=== PATIENT | female | born 1945 | race Caucasian/White ===

== ENCOUNTER 2017-07-26 14:07 | Emergency (ER) | payer MEDICARE, MEDICAID ==
[~2017-07-26] VITALS: Ht 154.9 cm; Wt 73.0 kg
[2017-07-26 14:35] VITALS: BP 133/64; PULSE 99; RESP 18; TEMP 98.4; O2SAT 99
--- NOTE | 2017-07-26 15:15 | PD ---
HPI Chief Complaint: Respiratory Symptoms Time Seen by Provider: 15:00 Travel History International Travel<30 days: No Contact w/Intl Traveler<30days: No Traveled to known affect area: No History of Present Illness HPI 71-year-old female presents to the emergency room for evaluation of significant nasal congestion that started last night. Patient states she could not sleep because she cannot breathe through her nose. It is draining down the back of her throat. She has associated left ear pain, sinus pressure, rhinorrhea, and sore throat. No cough. No fever or chills. She has not taken anything for her symptoms. She denies any chronic medical conditions or daily medications. [facility] Social History Tobacco Use: No Allergies-Medications (Allergen,Severity, Reaction): Coded Allergies: Penicillins (Verified Allergy, Unknown, 07/26/17) Review of Systems Except as stated in HPI: all other systems reviewed are Neg Physical Exam Narrative GENERAL: Well-nourished, well-developed female no acute distress. Afebrile. Ambulatory. SKIN: Focused skin assessment warm/dry. HEAD: Normocephalic. Mild tenderness to palpation over the frontal, ethmoid, and maxillary sinuses. EYES: No scleral icterus. No injection or drainage. ENT: Mucosa pink and moist. No erythema or exudates. No uvular edema. No uvular , palatal, or tonsillar deviation. Airway patent. Nasal turbinates appear normal without nasal blood, purulent drainage or septal hematoma. EARS: Bilateral pinnae and external canals appear within normal limits. Bilateral tympanic membranes without erythema, dullness or perforation. NECK: Supple, trachea midline. No JVD or lymphadenopathy. CARDIOVASCULAR: Regular rate and rhythm without murmurs, gallops, or rubs. RESPIRATORY: Breath sounds equal bilaterally. No accessory muscle use. Data Data Last Documented VS Vital Signs Date Time Temp Pulse Resp B/P (MAP) Pulse Ox O2 Delivery O2 Flow Rate FiO2 07/26/17 14:35 98.4 99 18 133/64 (87) 99 Orders Orders Influenzae A/B Antigen (07/26/17 15:08) Ed Discharge Order (07/26/17 15:55) MDM Medical Decision Making Medical Screen Exam Complete: Yes Emergency Medical Condition: Yes Medical Record Reviewed: Yes Differential Diagnosis Flu, strep, sinusitis, URI Narrative Course 71-year-old female presents to the emergency room for evaluation of nasal congestion, sinus pressure, and rhinorrhea that started last night. No associated fever, chills, nausea, vomiting, or cough. Patient states overnight her nose clogged so much that she could not breathe. She is afebrile and well- appearing in the emergency room. Vital signs stable. There is mild tenderness to palpation over the sinuses. Rapid influenza is negative. Likely viral URI. Patient was told to take [id number] cough and cold medications for symptoms. Told to follow-up with the primary care physician if symptoms persist for greater than 7 days or return for worsening symptoms. She understands and agrees to plan. Diagnosis Primary Impression: Upper respiratory infection Qualified Codes: J00 - Acute nasopharyngitis [common cold] Referrals: Primary Care Physician Additional Instructions: Rest and drink plenty of fluids. Tylenol for pain. Use [id number] cold medications for relief in symptoms. Also use Angelic pot for nasal congestion. Follow-up with a primary care physician. Return to the emergency room for worsening symptoms. Disposition: 01 DISCHARGE HOME Condition: Stable Catherine Donnelly Jul 26, 2017 15:15
== END 2017-07-26 16:14 | disposition home or self-care (01) ==
LOC: NEPK 14:07
DX: J00 Acute nasopharyngitis [common cold] (principal); H92.02 Otalgia, left ear
CPT/HCPCS: 87804; 99283

== ENCOUNTER 2017-09-30 07:42 | Emergency (ER) | payer MEDICARE, MEDICAID ==
[~2017-09-30] VITALS: Ht 157.5 cm; Wt 80.0 kg
[2017-09-30 07:44] VITALS: BP 181/94; PULSE 93; RESP 24; TEMP 98.4; O2SAT 98
[2017-09-30] MEDS ORDERED: AFRI0.052 EACH NARE (08:14)
--- NOTE | 2017-09-30 08:14 | PD ---
HPI Chief Complaint: Cold / Flu Symptoms Time Seen by Provider: 07:55 Travel History International Travel<30 days: No Contact w/Intl Traveler<30days: No Traveled to known affect area: No History of Present Illness HPI 71-year-old female presents to the emergency department accompanied by her daughter with complaint of stuffy nose since yesterday. She is complaining of shortness of breath. I believe her shortness of breath is related to her trying to breathe through her nose and it is congested. When she tells me she is short of breath she keeps trying to show me by breathing through her nose. She then appears anxious because she cannot breathe through her nose and starts to panic. she denies chest pain, chest tightness, wheezing. Denies fever, vomiting. Reports left ear pain. Denies sore throat. Reports occasional cough. Denies tobacco use. Symptoms are mild to moderate in severity. Seems to be aggravated with trying to breathe through her nose. No known relieving factors. Has not taken any medications or try any treatments to alleviate her symptoms. Primary care provider is Dr. Ngo. Allergies to penicillin. History of hypertension and hypothyroid. PFSH Past Medical History ?: Not Past Surgical History Hysterectomy: Yes (POSS ) Social History Alcohol Use: No Tobacco Use: No Substance Use: No Allergies-Medications (Allergen,Severity, Reaction): Coded Allergies: Penicillins (Verified Allergy, Unknown, 07/26/17) Reported Meds & Prescriptions Reported Meds & Active Scripts Active Afrin Nasal [place] (Oxymetazoline HCl) 0.05% [place] 2-3 [place] EACH NARE Q12H PRN 3 Days Review of Systems Except as stated in HPI: all other systems reviewed are Neg Physical Exam Narrative GENERAL: Well-nourished, well-developed elderly, female patient, in no acute distress; afebrile, nontoxic-appearing SKIN: Warm and dry. No rash. HEAD: Atraumatic. Normocephalic. EYES: Pupils equal and round. No scleral icterus. No injection or drainage. ENT: Mucosa pink and moist. No erythema or exudates. No uvular edema. No uvular , palatal, or tonsillar deviation. Airway patent. Nasal congestion noted. EARS: Bilateral pinnae and external canals appear within normal limits. Bilateral tympanic membranes without erythema, dullness or perforation. NECK: Trachea midline. No lymphadenopathy. CARDIOVASCULAR: Regular rate and rhythm. No murmur appreciated. RESPIRATORY: No accessory muscle use. Clear to auscultation. Breath sounds equal bilaterally. No retractions or tachypnea. GASTROINTESTINAL: Abdomen soft, non-tender, nondistended. Hepatic and splenic margins not palpable. Bowel sounds are active 4 quadrants. MUSCULOSKELETAL: No obvious deformities. No clubbing. No cyanosis. No edema. NEUROLOGICAL: Awake and alert. Oriented 3. No obvious cranial nerve deficits. Motor grossly within normal limits. Normal speech. Moves all extremities. 5/5 strength to all extremities. PSYCHIATRIC: Appropriate mood and affect; insight and judgment normal. Data Data Last Documented VS Vital Signs Date Time Temp Pulse Resp B/P (MAP) Pulse Ox O2 Delivery O2 Flow Rate FiO2 09/30/17 09:18 99 09/30/17 07:44 98.4 93 24 181/94 (123) Orders Orders Chest, Single Ap (09/30/17 08:05) Influenzae A/B Antigen (09/30/17 08:05) Lorazepam (Ativan) (09/30/17 08:15) Ed Discharge Order (09/30/17 08:51) MDM Medical Decision Making Medical Screen Exam Complete: Yes Emergency Medical Condition: Yes Medical Record Reviewed: Yes Differential Diagnosis Viral illness, upper respiratory infection, nasal congestion Narrative Course 71-year-old female physical exam and HPI consistent with nasal congestion. Patient is in no acute distress. Her lung sounds are clear and equal throughout. She is panicking because she cannot breathe through her nose because of nasal congestion. I asked Dr. Ramirez to evaluate the patient for her comfort. 0810: Dr. Ramirez evaluated the patient and agrees with my plan of care. He recommended Afrin nasal spray for home for 3 days. Chest x-ray unremarkable. Influenza negative. Afrin nasal spray prescribed for home. Instructed patient to follow up with primary care provider. Patient verbalizes understanding and agreement with treatment plan. Patient is medically cleared and stable for discharge. Discussed reasons to return to the emergency department. Patient agrees with treatment plan. The patients vital signs are stable and the patient is stable for outpatient follow-up and treatment. Patient discharged home, stable and in no acute distress. Diagnosis Primary Impression: Viral illness Referrals: [facility] Primary Care Physician Patient Instructions: Cold Symptoms (ED), General Instructions, Safe Use of Cough and Cold Medicines (ED) Additional Instructions: Ibuprofen or Tylenol as directed and as needed to reduce fever/pain Bqno-uxt-fylpspi cold/flu medications as directed and as needed for symptom management Get plenty of sleep/rest Drink plenty of fluids to prevent dehydration; such as Gatorade, Powerade, Pedialyte Mcduffie diet to encourage nutrition such as crackers, fruit, applesauce, toast, soup etc. Use an air humidifier/turn off ceiling fans Follow-up with your primary care provider within 1 day Return immediately to the emergency department with worsening of symptoms Med/Other Pt SpecificInfo: Prescription(s) given Scripts Oxymetazoline Nasal (Afrin Nasal [place]) 0.05% [place] 2-3 SPRAY EACH NARE Q12H Y for NASAL CONGESTION for 3 Days, #1 BOTTLE 0 Refills Prov: Inocencia Graves 09/30/17 Disposition: 01 DISCHARGE HOME Condition: Stable Inocencia Graves September 30, 2017 08:14
[2017-09-30] MEDS ORDERED: LORazepam 1 MG TAB PO ONE (08:15)
--- NOTE | 2017-09-30 08:16 | PD ---
Data Data Last Documented VS Vital Signs Date Time Temp Pulse Resp B/P (MAP) Pulse Ox O2 Delivery O2 Flow Rate FiO2 09/30/17 09:18 99 09/30/17 07:44 98.4 93 24 181/94 (123) Orders Orders Chest, Single Ap (09/30/17 08:05) Influenzae A/B Antigen (09/30/17 08:05) Lorazepam (Ativan) (09/30/17 08:15) Ed Discharge Order (09/30/17 08:51) MDM Supervised Visit with PEGGY: Yes Narrative Course I, Dr. Ramirez, have reviewed the advance practice practitioner's documentation and am in agreement, met with the patient face to face, made the diagnosis, and the medical decision making was done by me. *My assessment and Findings: Patient seen and examined by me in addition to Inocencia SOLIS. 71-year-old female presents emergency department for complaints of shortness of breath from upper respiratory and sinus stuffiness as well as a left earache. Patient is a reassuring physical exam by me, heart rate in the upper limit of normal in triage which she has been in the 80s on monitoring in the room, saturating well. No history of cancer no history of long periods of stasis and no history of blood clots. When she breathes through her mouth her shortness of breath resolved. When distracted back to breathe through her mouth her respiratory rate and heart rate normalized GENERAL: Well-nourished obese, well-developed patient. SKIN: Focused skin assessment warm/dry. HEAD: Normocephalic. EYES: No scleral icterus. No injection or drainage. NECK: Supple, trachea midline. No JVD or lymphadenopathy. CARDIOVASCULAR: Regular rate and rhythm without murmurs, gallops, or rubs. RESPIRATORY: Breath sounds equal bilaterally. No accessory muscle use. GASTROINTESTINAL: Abdomen soft, non-tender, nondistended. MUSCULOSKELETAL: No cyanosis, or edema. Homans sign negative bilaterally. BACK: Nontender without obvious deformity. No CVA tenderness. I think clinically the PE is a very low likelihood and the risks of radiation contrast exposure outweigh the benefits. Think her symptoms would be explained by nasal pack is blockage, consider upper respiratory infection likely viral. Empiric Afrin I think would be a good choice for her and follow-up with her primary care physician. Scripts Oxymetazoline Nasal (Afrin Nasal [place]) 0.05% [place] 2-3 SPRAY EACH NARE Q12H Y for NASAL CONGESTION for 3 Days, #1 BOTTLE 0 Refills Prov: Inocencia Graves 09/30/17 Isaac Ramirez MD September 30, 2017 08:16
--- NOTE | 2017-09-30 08:26 | RADRPT ---
EXAM DATE/TIME: 09/30/2017 08:14 [place] COMPARISON: No previous studies available for comparison. INDICATIONS : Shortness of breath. Congestion. MEDICAL HISTORY : Hypertension. SURGICAL HISTORY : None. ENCOUNTER: Initial ACUITY: 2 days PAIN SCORE: 0/10 LOCATION: Bilateral chest FINDINGS: A single view of the chest demonstrates the lungs to be symmetrically aerated without evidence of mas s, infiltrate or effusion. The cardiomediastinal contours are unremarkable. Osseous structures are intact. CONCLUSION: The lungs are clear. Arvin Tidwell MD on September 30, 2017 at 8:24 Board Certified Radiologist. This report was verified electronically.
== END 2017-09-30 09:18 | disposition home or self-care (01) ==
LOC: NEPD 07:42
DX: B34.9 Viral infection, unspecified (principal); R05 Cough; I10 Essential (primary) hypertension; E03.9 Hypothyroidism, unspecified; R09.81 Nasal congestion; H92.02 Otalgia, left ear
CPT/HCPCS: 71045; 87804; 99284

== ENCOUNTER 2017-11-04 08:53 | Inpatient (IN) | payer MEDICARE, MEDICAID ==
[~2017-11-04] VITALS: Ht 154.9 cm; Wt 76.8 kg
[~2017-11-04 08:53] MED LIST: AFRI0.052 EACH NARE
[2017-11-04 09:16] VITALS: BP 154/71; PULSE 77; RESP 16; TEMP 98.6; O2SAT 95
[2017-11-04 09:24] VITALS: RESP 18; O2SAT 96
[2017-11-04 09:27] VITALS: BP 136/84; PULSE 78; RESP 18; O2SAT 96
[2017-11-04] MEDS ORDERED: SODIUM CHLORIDE 0.9% FLUSH 10 ML FLUSH IVF PRN (09:30)
--- NOTE | 2017-11-04 09:51 | RADRPT ---
EXAM DATE: 11/04/2017 9:45 AM EDT AGE/SEX: 72 years / Female INDICATIONS: Chest pain. CLINICAL DATA: This is the patient's initial encounter. Patient reports that signs and symptoms have been present for 1 day and indicates a pain score of 3/10. MEDICAL/SURGICAL HISTORY: None. None. COMPARISON: [facility] [place]ST SINGLE AP, 09/30/2017. . FINDINGS: A single AP view of the chest demonstrates mild cardiomegaly with bibasilar densities The cardiomedia stinal contours are unremarkable. No pleural effusions. Osseous structures are intact. CONCLUSION: Cardiomegaly with bibasilar atelectasis. Electronically signed by: Cesar Banerjee MD 11/04/2017 9:49 AM EDT
[2017-11-04 10:01] LABS: AUTOMATED NEUTROPHIL # 6.9 TH/MM3 (1.8-7.7); BASOPHIL # 0.1 TH/MM3 (0-0.2); BASOPHIL % 0.6 % (0.0-2.0); EOSINOPHIL # 0.4 TH/MM3 (0-0.4); EOSINOPHIL % 3.9 % (0.0-4.0); HEMATOCRIT 39.2 % (35.0-46.0); HEMOGLOBIN 13.1 GM/DL (11.6-15.3); LYMPH % 22.2 % (9.0-44.0); LYMPHOCYTE # 2.3 TH/MM3 (1.0-4.8); MEAN CORPUSCULAR HEMOGLOBIN 30.1 PG (27.0-34.0); MEAN CORPUSCULAR HGB CONC 33.4 % (32.0-36.0); MEAN PLATELET VOLUME 7.2 FL (7.0-11.0); MONO % 7.6 % (0.0-8.0); MONOCYTE # 0.8 TH/MM3 (0-0.9); NEUT % 65.7 % (16.0-70.0); PLATELET COUNT 319 TH/MM3 (150-450); RED BLOOD COUNT 4.36 MIL/MM3 (4.00-5.30); RED CELL DISTRIBUTION WIDTH 14.5 % (11.6-17.2); WHITE BLOOD COUNT 10.5 TH/MM3 (4.0-11.0)
[2017-11-04 10:16] LABS: PROTHROMBIN TIME - PATIENT 10.2 SEC (9.8-11.6)
--- NOTE | 2017-11-04 11:12 | PD ---
HPI Chief Complaint: Chest Pain Time Seen by Provider: 09:20 Travel History International Travel<30 days: No Contact w/Intl Traveler<30days: No Traveled to known affect area: No History of Present Illness HPI Patient is 72 year old female presents to the ER with epigastric and sternal CP radiating to right shoulder and down right arm. No associated n.v sob or dizziness. Has had stress test in distant past. History of HTN, non-smoker. Patient also states the pain radiates to her right groin where there is a rash. Symptoms moderate, location, radiation and context as above. PFSH Past Surgical History Hysterectomy: Yes (POSS ) Social History Alcohol Use: No Tobacco Use: No Substance Use: No Allergies-Medications (Allergen,Severity, Reaction): Coded Allergies: Penicillins (Verified Allergy, Unknown, 07/26/17) Reported Meds & Prescriptions Reported Meds & Active Scripts Active Nystatin Topical (Nystatin) 100,000 unit/gm Cream 1 Applic TOPICAL Q6HR Afrin Nasal [place] (Oxymetazoline HCl) 0.05% [place] 2-3 [place] EACH NARE Q12H PRN 3 Days Review of Systems Except as stated in HPI: all other systems reviewed are Neg Physical Exam Narrative GENERAL: WD/WN in moderate discomfort. SKIN: Warm and dry. Plaqued rash to left inguinal fold area consistent with candidiasis. HEAD: Atraumatic. Normocephalic. EYES: Pupils equal and round. No scleral icterus. No injection or drainage. ENT: No nasal bleeding or discharge. Mucous membranes pink and moist. NECK: Trachea midline. No JVD. CARDIOVASCULAR: Regular rate and rhythm. 2+ bialteral equal pulses in all four extremities. RESPIRATORY: No accessory muscle use. Clear to auscultation. Breath sounds equal bilaterally. GASTROINTESTINAL: Abdomen soft, non-tender, nondistended. Hepatic and splenic margins not palpable. MUSCULOSKELETAL: Extremities without clubbing, cyanosis, or edema. No obvious deformities. Full NT ROm of both shoulders, no bony tenderness. NEUROLOGICAL: Awake and alert. No obvious cranial nerve deficits. Motor grossly within normal limits. Five out of 5 muscle strength in the arms and legs. Normal speech. PSYCHIATRIC: Appropriate mood and affect; insight and judgment normal. Data Data Last Documented VS Vital Signs Date Time Temp Pulse Resp B/P (MAP) Pulse Ox O2 Delivery O2 Flow Rate FiO2 11/04/17 13:52 83 18 134/63 (86) 97 Room Air 11/04/17 09:16 98.6 Orders Orders Electrocardiogram (11/04/17 09:20) Ckmb (Isoenzyme) Profile (11/04/17 09:20) Complete Blood Count With Diff (11/04/17 09:20) Comprehensive Metabolic Panel (11/04/17 09:20) Magnesium (Mg) (11/04/17 09:20) Prothrombin Time / Inr (Pt) (11/04/17 09:20) Act Partial Throm Time (Ptt) (11/04/17 09:20) Troponin I (11/04/17 09:20) Chest, Single Ap (11/04/17 09:20) Ecg Monitoring (11/04/17 09:20) Iv Access Insert/Monitor (11/04/17 09:20) Oximetry (11/04/17 09:20) Oxygen Administration (11/04/17 09:20) Sodium Chloride 0.9% Flush (Ns Flush) (11/04/17 09:30) Aspirin Chew (Aspirin Chew) (11/04/17 13:30) Morphine Inj (Morphine Inj) (11/04/17 14:15) Electrocardiogram (11/04/17 ) Nitroglycerin Sl (Nitrostat Sl) (11/04/17 14:15) Admit Order (Ed Use Only) (11/04/17 ) Labs Laboratory Tests Test 11/04/17 09:34 11/04/17 11:43 White Blood Count 10.5 TH/MM3 Red Blood Count 4.36 MIL/MM3 Hemoglobin 13.1 GM/DL Hematocrit 39.2 % Mean Corpuscular Volume 90.0 FL Mean Corpuscular Hemoglobin 30.1 PG Mean Corpuscular Hemoglobin Concent 33.4 % Red Cell Distribution Width 14.5 % Platelet Count 319 TH/MM3 Mean Platelet Volume 7.2 FL Neutrophils (%) (Auto) 65.7 % Lymphocytes (%) (Auto) 22.2 % Monocytes (%) (Auto) 7.6 % Eosinophils (%) (Auto) 3.9 % Basophils (%) (Auto) 0.6 % Neutrophils # (Auto) 6.9 TH/MM3 Lymphocytes # (Auto) 2.3 TH/MM3 Monocytes # (Auto) 0.8 TH/MM3 Eosinophils # (Auto) 0.4 TH/MM3 Basophils # (Auto) 0.1 TH/MM3 CBC Comment DIFF FINAL Differential Comment Prothrombin Time 10.2 SEC Prothromb Time International Ratio 1.0 RATIO Activated Partial Thromboplast Time 25.7 SEC Blood Urea Nitrogen 9 MG/DL Creatinine 0.81 MG/DL Random Glucose 87 MG/DL Total Protein 8.2 GM/DL Albumin 3.7 GM/DL Calcium Level 8.8 MG/DL Magnesium Level 2.3 MG/DL Alkaline Phosphatase 102 U/L Aspartate Amino Transf (AST/SGOT) 16 U/L Alanine Aminotransferase (ALT/SGPT) 16 U/L Total Bilirubin 0.2 MG/DL Sodium Level 141 MEQ/L Potassium Level 4.4 MEQ/L Chloride Level 106 MEQ/L Carbon Dioxide Level 28.8 MEQ/L Anion Gap 6 MEQ/L Estimat Glomerular Filtration Rate 70 ML/MIN Total Creatine Kinase 90 U/L Troponin I LESS THAN 0.02 NG/ML MDM Medical Decision Making Medical Screen Exam Complete: Yes Emergency Medical Condition: Yes Differential Diagnosis ACS, AMI, Tinea cruris, pneumonia, GERD. Narrative Course Patient roomed in ED, ekg non-ischemic, troponin negative. Last 24 hours Impressions Chest X-Ray 11/04/17 0920 Signed Impressions: CONCLUSION: Cardiomegaly with bibasilar atelectasis. Tinea cruris could be treated outpatient with nystatin. I don't think this is contributing to her chest pain. Morphine, nitro aspirin, feeling better. discussed [facility] obs and she is agreeable. D/W Dr. Radford. Diagnosis Primary Impression: Chest pain Additional Impression: Tinea cruris Admitting Information Admitting Physician Requests: Observation Med/Other Pt SpecificInfo: Prescription(s) given Scripts Nystatin Topical (Nystatin Topical) 100,000 unit/gm Cream 1 APPLIC TOPICAL Q6HR for Infection, #15 GM 0 Refills Prov: Isaac Ramirez MD 11/04/17 Disposition: 01 DISCHARGE HOME Condition: Stable Isaac Ramirez MD Nov 04, 2017 11:12
[2017-11-04 12:26] LABS: ALKALINE PHOSPHATASE 102 U/L (45-117); TOTAL BILIRUBIN ADULT 0.2 MG/DL (0.2-1.0); TOTAL PROTEIN 8.2 GM/DL (6.4-8.2); TROPONIN I LESS THAN 0.02 NG/ML (0.02-0.05)
[2017-11-04 12:47] LABS: ALBUMIN 3.7 GM/DL (3.4-5.0); ALT (GPT) 16 U/L (10-53); AST (GOT) 16 U/L (15-37); BICARBONATE 28.8 MEQ/L (21.0-32.0); BLOOD UREA NITROGEN 9 MG/DL (7-18); CALCIUM 8.8 MG/DL (8.5-10.1); CHLORIDE 106 MEQ/L (98-107); CREATININE 0.81 MG/DL (0.50-1.00); GLOMERULAR FILTRATION RATE 70 ML/MIN (>89); GLUCOSE,RANDOM 87 MG/DL (74-106); MAGNESIUM 2.3 MG/DL (1.5-2.5); SODIUM (NA) 141 MEQ/L (136-145)
[2017-11-04] MEDS ORDERED: ASPIRIN 81 MG CHEW TAB CHEW ONE (13:30)
[2017-11-04 13:52] VITALS: BP 134/63; PULSE 83; RESP 18; O2SAT 97
[2017-11-04] MEDS ORDERED: NITROGLYCERIN 0.4 MG SL 25 TABS/BTL SL ONE (14:15)
[2017-11-04] MEDS ORDERED: MORPHINE SULFATE 4 MG/ML INJ IV PUSH ONE (14:15)
--- NOTE | 2017-11-04 15:11 | EKG ---
Date Performed: 11/04/2017 Time Performed: 09:27:53 PTAGE: 72 years EKG: Sinus rhythm WITH SINUS ARRHYTHMIA NORMAL ECG INTERPRETATION BASED ON A DEFAULT AGE OF 41 YEARS NO PREVIOUS TRACING DOCTOR: Marlo Chávez Interpretating Date/Time 11/04/2017 15:08:35
[2017-11-04] MEDS ORDERED: NYST15T TOPICAL (15:16)
--- NOTE | 2017-11-04 16:32 | PD.CARD.PN ---
Subjective Subjective Remarks Patient was seen in concert with the nurse practitioner and examined personally. Documentation is reviewed as well as laboratory and radiographic findings. I am in agreement with documentation as stated. Patient has a high probability of having shingles involving the base of her neck and right shoulder area but vesicular rash not fully developed yet. The area is red and exquisitely tender however She will be ruled out for ACS using standard chest pain protocol however does anticipate this will be negative and she will require treatment for shingles. Objective Medications Current Medications Medications (Trade) Dose Ordered Sig/Ty Route Start Time Stop Time Status Last Admin (NS Flush) 2 ml UNSCH PRN IVF 11/04/17 09:30 (Mycostatin Cream) 1 applic Q6HR TOPICAL 11/04/17 18:00 Vital Signs / I&O Vital Signs Date Time Temp Pulse Resp B/P (MAP) Pulse Ox O2 Delivery O2 Flow Rate FiO2 11/04/17 13:52 83 18 134/63 (86) 97 Room Air 11/04/17 09:27 78 18 136/84 (101) 96 Room Air 11/04/17 09:24 18 96 Room Air 11/04/17 09:24 96 Room Air 11/04/17 09:16 98.6 77 16 154/71 (98) 95 Physical Exam Red slightly vesicular area at the nap of her neck with exquisite tenderness and burning extending out over the right shoulder deltoid and anterior chest Laboratory Laboratory Tests Test 11/04/17 09:34 11/04/17 11:43 White Blood Count 10.5 TH/MM3 Red Blood Count 4.36 MIL/MM3 Hemoglobin 13.1 GM/DL Hematocrit 39.2 % Mean Corpuscular Volume 90.0 FL Mean Corpuscular Hemoglobin 30.1 PG Mean Corpuscular Hemoglobin Concent 33.4 % Red Cell Distribution Width 14.5 % Platelet Count 319 TH/MM3 Mean Platelet Volume 7.2 FL Neutrophils (%) (Auto) 65.7 % Lymphocytes (%) (Auto) 22.2 % Monocytes (%) (Auto) 7.6 % Eosinophils (%) (Auto) 3.9 % Basophils (%) (Auto) 0.6 % Neutrophils # (Auto) 6.9 TH/MM3 Lymphocytes # (Auto) 2.3 TH/MM3 Monocytes # (Auto) 0.8 TH/MM3 Eosinophils # (Auto) 0.4 TH/MM3 Basophils # (Auto) 0.1 TH/MM3 CBC Comment DIFF FINAL Differential Comment Prothrombin Time 10.2 SEC Prothromb Time International Ratio 1.0 RATIO Activated Partial Thromboplast Time 25.7 SEC Blood Urea Nitrogen 9 MG/DL Creatinine 0.81 MG/DL Random Glucose 87 MG/DL Total Protein 8.2 GM/DL Albumin 3.7 GM/DL Calcium Level 8.8 MG/DL Magnesium Level 2.3 MG/DL Alkaline Phosphatase 102 U/L Aspartate Amino Transf (AST/SGOT) 16 U/L Alanine Aminotransferase (ALT/SGPT) 16 U/L Total Bilirubin 0.2 MG/DL Sodium Level 141 MEQ/L Potassium Level 4.4 MEQ/L Chloride Level 106 MEQ/L Carbon Dioxide Level 28.8 MEQ/L Anion Gap 6 MEQ/L Estimat Glomerular Filtration Rate 70 ML/MIN Total Creatine Kinase 90 U/L Troponin I LESS THAN 0.02 NG/ML Imaging Last 24 hours Impressions Chest X-Ray 11/04/17 0920 Signed Impressions: CONCLUSION: Cardiomegaly with bibasilar atelectasis. Assessment and Plan Assessment and Plan Discussed care with nurse practitioner she will be ruled out for ACS with standard protocol but also be initiated on treatment for probable shingles Kush Radford MD Nov 04, 2017 16:32
[2017-11-04] MEDS ORDERED: NITROGLYCERIN 0.4 MG SL 25 TABS/BTL SL PRN (16:45)
[2017-11-04 16:58] VITALS: BP 116/55; PULSE 62; RESP 20; TEMP 97.2; O2SAT 95
--- NOTE | 2017-11-04 17:58 | HHI.HP ---
HPI Primary Care Physician Austyn Ngo MD (Paul) Chief Complaint headache, neck pain, right shoulder pain History of Present Illness 72 y.o. female presents to the ER for pain starting last evening that she states began in the occipital head radiating into the right posterior neck and shoulder then into the anterior shoulder region. She points to these areas as discussing it. She denies any associated N/V or diaphoresis. Denies any dyspnea, she has had 3 weeks of nasal congestion/drainage for which she has used OTC generic Afrin spray. She states she was told years back that she had a "heart attack" when she lived in the [place] area when she had reported to the ER with an episode of chest pain. She does not recall; however, ever having to have a cardiac catheterization at the time. She endorses she was placed on medicine for it. The pain was constant throughout the night without any relieving factors thus causing her to present to the ER. No precipitating factors other than she states her neck hurt with some movements. She denies any falls or neck/head injuries. States she does have arthritis. She did experience "relief of her headache" with a dose of Morphine in the ER. Review of Systems Consitutional: DENIES: Fatigue, Fever, Chills, Weight gain, Weight loss Eyes: DENIES: Amaurosis Fug[place], Change in vision HEENT: DENIES: Lightheadedness, Change in hearing Respiratory: DENIES: See HPI, Cough, Snoring, Shortness of breath, Wheezing, Sputum production Cardiovascular: COMPLAINS OF: See HPI Gastrointestinal: DENIES: Nausea, Vomiting, Change in bowel habits, Reflux, Bloody stools, Melena Genitourinary: DENIES: Urinary incontinence, Difficulty voiding Integumentary: COMPLAINS OF: Rash (itchy rash left groin area unrelated) Neurologic: DENIES: Tingling or numbness, Memory problems, Poor Balance, Stroke symptoms Musculoskeletal: COMPLAINS OF: Joint pain (hx of in hands) Psychiatric: DENIES: Anxiety, Depression, Sleep disturbances Hematologic: DENIES: Bruising tendencies, Bleeding tendencies Endocrine: COMPLAINS OF: Thyroid disease itchy rash left groin unrelated Past Family Social History Allergies: Coded Allergies: Penicillins (Verified Allergy, Unknown, 07/26/17) Past Medical History Hx of HTN, Hypothyroidism. Denies Diabetes. Unsure of cholesterol status Past Surgical History Hysterectomy Reported Medications Levothyroxine 100 mcg PO daily Lisinopril 20 mg PO daily Reported Meds & Active Scripts Active Nystatin Topical (Nystatin) 100,000 unit/gm Cream 1 Applic TOPICAL Q6HR Afrin Nasal [place] (Oxymetazoline HCl) 0.05% [place] 2-3 [place] EACH NARE Q12H PRN 3 Days Active Ordered Medications Current Medications Medications (Trade) Dose Ordered Sig/Ty Route Start Time Stop Time Status Last Admin (NS Flush) 2 ml UNSCH PRN IVF 11/04/17 09:30 (Mycostatin Cream) 1 applic Q6HR TOPICAL 11/04/17 18:00 (NS Flush) 2 ml BID IV FLUSH 11/04/17 21:00 (Tylenol) 500 mg Q4H PRN PO 11/04/17 16:45 (Nitrostat Sl) 0.4 mg Q5M PRN SL 11/04/17 16:45 (Aspirin) 325 mg DAILY PO 11/05/17 09:00 (Prinivil) 20 mg DAILY PO 11/05/17 09:00 (Synthroid) 100 mcg DAILY@0600 PO 11/05/17 08:00 (Valtrex) 1,000 mg Q8HR PO 11/04/17 22:00 Family History Father , hx of Diabetes Mom , hx of cancer Sister , hx of CHF Sister living, brain tumor (? cancer) Social History Lives with daughter locally Lifetime nonsmoker Denies illicit drug use Denies ETOH use Physical Exam Vital Signs Vital Signs Date Time Temp Pulse Resp B/P (MAP) Pulse Ox O2 Delivery O2 Flow Rate FiO2 11/04/17 16:58 97.2 62 20 116/55 (75) 95 11/04/17 13:52 83 18 134/63 (86) 97 Room Air 11/04/17 09:27 78 18 136/84 (101) 96 Room Air 11/04/17 09:24 18 96 Room Air 11/04/17 09:24 96 Room Air 11/04/17 09:16 98.6 77 16 154/71 (98) 95 Physical Exam GENERAL: very pleasant female, [place] is primary language but speaks Singaporean well. Offered dining room hostess services but patient declined stating she understands well. SKIN: Warm and dry. Erythematous macular rash left groin with some satellite lesions. No drainage. Small circular patch of erythema to mid cervical area just below hairline and slightly upward into hairline. A couple of erythematous papules within this area, no vesicles. Patient was questioned regarding a birthmark or past rash in this area and she denies both. HEAD: Atraumatic. Normocephalic. EYES: Pupils equal and round. No scleral icterus. No injection or drainage. ENT: No nasal bleeding, mild clear nasal discharge and mild nasal congestion. Mucous membranes pink and moist. NECK: Trachea midline. No JVD. No carotid bruits. CARDIOVASCULAR: Regular rate and rhythm. S1 and S2 in RRR. No S3, S4, rub or gallop. No appreciable murmur. RESPIRATORY: No accessory muscle use. Clear to auscultation. Breath sounds equal bilaterally. GASTROINTESTINAL: Abdomen soft, non-tender, nondistended. Hepatic and splenic margins not palpable. MUSCULOSKELETAL: Extremities without clubbing, cyanosis, or edema. No obvious deformities, some arthritic changes fingers bilaterally. Exquisite tenderness to occiput, musculoskeletal area right trapezius and anterior shoulder/chest wall below right scapula. NEUROLOGICAL: Awake and alert. No obvious cranial nerve deficits. Motor grossly within normal limits. Five out of 5 muscle strength in the arms and legs. Normal speech. PSYCHIATRIC: Appropriate mood and affect; insight and judgment normal. EXTREMITIES:moves all extremities. some tenderness cervical spine with rotation of head laterally. Laboratory Laboratory Tests Test 11/04/17 09:34 11/04/17 11:43 White Blood Count 10.5 Red Blood Count 4.36 Hemoglobin 13.1 Hematocrit 39.2 Mean Corpuscular Volume 90.0 Mean Corpuscular Hemoglobin 30.1 Mean Corpuscular Hemoglobin Concent 33.4 Red Cell Distribution Width 14.5 Platelet Count 319 Mean Platelet Volume 7.2 Neutrophils (%) (Auto) 65.7 Lymphocytes (%) (Auto) 22.2 Monocytes (%) (Auto) 7.6 Eosinophils (%) (Auto) 3.9 Basophils (%) (Auto) 0.6 Neutrophils # (Auto) 6.9 Lymphocytes # (Auto) 2.3 Monocytes # (Auto) 0.8 Eosinophils # (Auto) 0.4 Basophils # (Auto) 0.1 CBC Comment DIFF FINAL Differential Comment Prothrombin Time 10.2 Prothromb Time International Ratio 1.0 Activated Partial Thromboplast Time 25.7 Blood Urea Nitrogen 9 Creatinine 0.81 Random Glucose 87 Total Protein 8.2 Albumin 3.7 Calcium Level 8.8 Magnesium Level 2.3 Alkaline Phosphatase 102 Aspartate Amino Transf (AST/SGOT) 16 Alanine Aminotransferase (ALT/SGPT) 16 Total Bilirubin 0.2 Sodium Level 141 Potassium Level 4.4 Chloride Level 106 Carbon Dioxide Level 28.8 Anion Gap 6 Estimat Glomerular Filtration Rate 70 Total Creatine Kinase 90 Troponin I LESS THAN 0.02 Result Diagram: 11/04/17 0934 11/04/17 1143 Imaging Last 24 hours Impressions Chest X-Ray 11/04/17 0920 Signed Impressions: CONCLUSION: Cardiomegaly with bibasilar atelectasis. Course EKG x 1 Sinus rhythm with sinus Arrhythmia Caprini VTE Risk Assessment Caprini VTE Risk Assessment: No/Low Risk (score <= 1) Caprini Risk Assessment Model Point Value = 1 Point Value = 2 Point Value = 3 Point Value = 5 Age 41-60 Minor surgery BMI > 25 kg/m2 Swollen legs Varicose veins or History of unexplained or recurrent spontaneous Oral contraceptives or hormone replacement Sepsis (< 1 month) Serious lung disease, including pneumonia (< 1 month) Abnormal pulmonary function Acute myocardial infarction Congestive heart failure (< 1 month) History of inflammatory bowel disease Medical patient at bed rest Age 61-74 Arthroscopic surgery Major open surgery (> 45 min) Laparoscopic surgery (> 45 min) Malignancy Confined to bed (> 72 hours) Immobilizing plaster cast Central venous access Age >= 75 History of VTE Family history of VTE Factor V Leiden Prothrombin [id number] Lupus anticoagulant Anticardiolipin antibodies Elevated serum homocysteine Heparin-induced thrombocytopenia Other congenital or acquired thrombophilia Stroke (< 1 month) Elective arthroplasty Hip, pelvis, or leg fracture Acute spinal cord injury (< 1 month) Prophylaxis Regimen Total Risk Factor Score Risk Level Prophylaxis Regimen 0-1 Low Early ambulation 2 Moderate Order ONE of the following: *Sequential Compression Device (SCD) *Heparin 5000 units SQ BID 3-4 Higher Order ONE of the following medications: *Heparin 5000 units SQ TID *Enoxaparin/Lovenox 40 mg SQ daily (WT < 150 kg, CrCl > 30 mL/min) *Enoxaparin/Lovenox 30 mg SQ daily (WT < 150 kg, CrCl > 10-29 mL/min) *Enoxaparin/Lovenox 30 mg SQ BID (WT < 150 kg, CrCl > 30 mL/min) AND/OR *Sequential Compression Device (SCD) 5 or more Highest Order ONE of the following medications: *Heparin 5000 units SQ TID (Preferred with Epidurals) *Enoxaparin/Lovenox 40 mg SQ daily (WT < 150 kg, CrCl > 30 mL/min) *Enoxaparin/Lovenox 30 mg SQ daily (WT < 150 kg, CrCl > 10-29 mL/min) *Enoxaparin/Lovenox 30 mg SQ BID (WT < 150 kg, CrCl > 30 mL/min) AND *Sequential Compression Device (SCD) Assessment and Plan Problem List: (1) Chest pain ICD Codes: R07.9 - Chest pain, unspecified Status: Acute (2) Tinea cruris ICD Codes: B35.6 - Tinea cruris Status: Acute Assessment and Plan #1. Chest pain: atypical in nature and possibly with musculoskeletal etiology but given risk factors and stated past hx of DC will place in 23 hr observation in [facility] with telemetry and rule out with serial enzymes and EKGs. Patient seen by Dr. Radford as well and if patient rules out will reassess in AM for need for possible stress test. #2 Skin Candidiasis right groin: antifungal cream ordered per ER MD #3 Neck/shoulder pain: small circular rash mid cervical area which may represent early shingles rash, her described pain per HPI may represent radicular pain secondary to developing shingles or may be musculoskeletal related. Will start on Valtrex, pain medication PRN and re-exam area in AM. Code Status Full code Discussed Condition With Dr. Radford who examined the patient as well. Bobbi Martin Nov 04, 2017 17:58
[2017-11-04 18:09] LABS: TROPONIN I LESS THAN 0.02 NG/ML (0.02-0.05)
[2017-11-04] MEDS: NYSTATIN 100,000 UNIT/GM CREAM 15 GM TOPICAL SCH (18:15)
[2017-11-04 20:02] VITALS: BP 119/56; PULSE 77; RESP 16; TEMP 99.6; O2SAT 96
[2017-11-04] MEDS: valACYclovir HCL 500 MG TAB PO SCH (20:24)
[2017-11-04] MEDS: MORPHINE SULFATE 4 MG/ML INJ IV PRN (20:25)
[2017-11-04] MEDS: SODIUM CHLORIDE 0.9% FLUSH 10 ML FLUSH IV FLUSH SCH (20:27)
[2017-11-04 21:09] LABS: TROPONIN I LESS THAN 0.02 NG/ML (0.02-0.05)
[2017-11-04] MEDS: ACETAMINOPHEN/HYDROcodone 325 MG/5 MG TAB PO PRN (23:27)
[2017-11-04] MEDS: LORazepam 0.5 MG TAB PO PRN (23:28)
[2017-11-05] VITALS (28 sets, daily range): BP systolic 92–130; BP diastolic 50–72; PULSE 61–94; RESP 18–20; TEMP 97.6–98.6; O2SAT 96–98
[2017-11-05] MEDS: MORPHINE SULFATE 4 MG/ML INJ IV PRN ×3 (03:44→20:42)
[2017-11-05] MEDS: valACYclovir HCL 500 MG TAB PO SCH (06:00)
[2017-11-05] MEDS: NYSTATIN 100,000 UNIT/GM CREAM 15 GM TOPICAL SCH ×5 (06:00→23:00)
[2017-11-05] MEDS: ASPIRIN 325 MG TAB PO SCH (08:09)
[2017-11-05] MEDS: LEVOTHYROXINE SODIUM 100 MCG TAB PO SCH (08:10)
[2017-11-05] MEDS: SODIUM CHLORIDE 0.9% FLUSH 10 ML FLUSH IV FLUSH SCH ×2 (08:10→20:39)
--- NOTE | 2017-11-05 08:55 | EKG ---
Date Performed: 11/04/2017 Time Performed: 19:58:18 PTAGE: 72 years EKG: Sinus rhythm WITH FIRST DEGREE AV BLOCK LOW QRS VOLTAGE IN PRECORDIAL LEADS ABNORMAL ECG No significant change PREVIOUS TRACING : 11/04/2017 15.20 DOCTOR: Kush Radford Interpretating Date/Time 11/05/2017 08:53:34
--- NOTE | 2017-11-05 08:56 | EKG ---
Date Performed: 11/04/2017 Time Performed: 15:20:00 PTAGE: 72 years EKG: Sinus rhythm PROBABLE INFERIOR MYOCARDIAL INFARCTION ABNORMAL ECG No significant change PREVIOUS TRACING : 11/04/2017 09.27 DOCTOR: Kush Radford Interpretating Date/Time 11/05/2017 08:54:39
[2017-11-05] MEDS ORDERED: LISINOPRIL 20 MG TAB PO SCH (09:00)
--- NOTE | 2017-11-05 10:01 | HHI.PR ---
Subjective Remarks The patient was complaining of pain in the back of her head, in her right shoulder and in her sternum. She says she has had a heart attack before years ago. She says she follows with a skiver counter in [place]. Her daughter was at the bedside. Objective Vitals Vital Signs Date Time Temp Pulse Resp B/P (MAP) Pulse Ox O2 Delivery O2 Flow Rate FiO2 11/05/17 06:00 69 11/05/17 05:00 72 11/05/17 04:00 Nasal Cannula 2.00 11/05/17 04:00 70 11/05/17 04:00 98.1 70 18 100/56 (71) 97 11/05/17 03:00 67 11/05/17 02:00 65 11/05/17 01:00 72 11/05/17 00:00 Nasal Cannula 2.00 11/05/17 00:00 83 11/05/17 00:00 98.6 83 20 130/72 (91) 97 11/04/17 20:35 16 11/04/17 20:02 99.6 77 16 119/56 (77) 96 11/04/17 16:58 97.2 62 20 116/55 (75) 95 11/04/17 13:52 83 18 134/63 (86) 97 Room Air I/O 11/04/17 11/04/17 11/04/17 11/05/17 11/05/17 11/05/17 07:00 15:00 23:00 07:00 15:00 23:00 Intake Total 240 ml Output Total 500 ml Balance -260 ml Intake Oral 240 ml Output Urine Total 500 ml # Bowel Movements 0 Result Diagram: 11/04/17 0934 11/04/17 1143 Imaging Last Impressions Chest X-Ray 11/04/17 0920 Signed Impressions: CONCLUSION: Cardiomegaly with bibasilar atelectasis. Objective Remarks GENERAL: No distress. SKIN: Warm and dry. HEAD: Atraumatic. Normocephalic. EYES: Pupils equal and round. No scleral icterus. No injection or drainage. ENT: No nasal bleeding, mild clear nasal discharge and mild nasal congestion. Mucous membranes pink and moist. NECK: Trachea midline. No JVD. No carotid bruits. CARDIOVASCULAR: Regular rate and rhythm. S1 and S2 in RRR. No S3, S4, rub or gallop. No appreciable murmur. RESPIRATORY: No accessory muscle use. Clear to auscultation. Breath sounds equal bilaterally. GASTROINTESTINAL: Abdomen soft, non-tender, nondistended. Hepatic and splenic margins not palpable. MUSCULOSKELETAL: Extremities without clubbing, cyanosis, or edema. No obvious deformities. Tender to palpation of sternum, right shoulder and occiput. NEUROLOGICAL: Awake and alert. No obvious cranial nerve deficits. Motor grossly within normal limits. Five out of 5 muscle strength in the arms and legs. Normal speech. PSYCHIATRIC: Appropriate mood and affect; insight and judgment normal. A/P Assessment and Plan Chest pain/ shoulder pain/ occipital pain Atypical in nature and likely musculoskeletal. She does have a history of AL and had a short run of V tach overnight. Serial enzymes negative. - consult cardiology. - Add Lopressor. - continue ASA. - likely stress test in AM. She already ate today. HTN Blood pressure on the low side now. - d/c lisinopril. - continue Lopressor. Skin Candidiasis Right groin. - antifungal cream ordered. PPx: Layton Meyers DO Nov 05, 2017 10:01
[2017-11-05] MEDS: ACETAMINOPHEN/HYDROcodone 325 MG/5 MG TAB PO PRN ×3 (10:11→22:59)
[2017-11-05 11:37] LABS: CHOLESTEROL/ HDL RATIO 3.85 RATIO; HDL CHOLESTEROL 37.1 MG/DL (40.0-60.0)
[2017-11-05] MEDS: METOPROLOL TARTRATE 25 MG TAB PO SCH ×2 (12:31→20:38)
[2017-11-05] MEDS: LORazepam 0.5 MG TAB PO PRN (20:38)
[2017-11-06] VITALS (25 sets, daily range): BP systolic 105–128; BP diastolic 50–75; PULSE 60–94; RESP 16–18; TEMP 98–98.6; O2SAT 94–98
[2017-11-06] MEDS: LEVOTHYROXINE SODIUM 100 MCG TAB PO SCH (05:45)
[2017-11-06] MEDS: ACETAMINOPHEN/HYDROcodone 325 MG/5 MG TAB PO PRN (05:46)
[2017-11-06] MEDS: NYSTATIN 100,000 UNIT/GM CREAM 15 GM TOPICAL SCH ×3 (05:48→20:24)
[2017-11-06] MEDS: SODIUM CHLORIDE 0.9% FLUSH 10 ML FLUSH IV FLUSH SCH ×2 (09:00→20:25)
[2017-11-06] MEDS: LORazepam 0.5 MG TAB PO PRN ×2 (09:03→23:20)
[2017-11-06] MEDS: ASPIRIN 325 MG TAB PO SCH (09:04)
[2017-11-06] MEDS: METOPROLOL TARTRATE 25 MG TAB PO SCH ×2 (09:04→20:24)
[2017-11-06] MEDS: ACETAMINOPHEN 500 MG CPLT PO PRN ×2 (09:05→20:24)
[2017-11-06] MEDS ORDERED: REGADENOSON INJ 0.4 MG/5 ML SYR ONE (12:54)
--- NOTE | 2017-11-06 14:11 | RADRPT ---
EXAM DATE: 11/06/2017 1:44 PM EDT AGE/SEX: 72 years / Female INDICATIONS:Myocardial infarction. . Chest pain. CLINICAL DATA: This is the patient's initial encounter. Patient reports that signs and symptoms have been present for 1 day and indicates a pain score of 3/10. MEDICAL/SURGICAL HISTORY: Hypertension. Chronic obstructive pulmonary disease. Hysterectomy. R ight hip surgery. COMPARISON: No prior exams available for comparison. No external comparison. DOSE: 8.3 mCi Tc 99m Myoview at rest 27.3 mCi [id number] at stress 0.4 mg Lexiscan STRESS SYMPTOMS: Dizzy. EJECTION FRACTION: 45 % TECHNIQUE: The patient underwent pharmacologic stress with infusion of prescribed dose. Continuous ECG tracing was monitored during stress. Gated SPECT imaging was performed after stress and conventi onal SPECT imaging was performed at rest. The examination was performed on a SPECT /CT scanner, both attenuation and non-corrected datasets were reviewed. FINDINGS: Distribution: The maximum perfused segment at stress is in the anterior lateral wall wall. Perfusion Study: The pattern of perfusion at stress is within normal limits. Gated Study: There are intact wall motion and wall thickening without hypokinetic or dyskinetic segm ents. The ejection fraction is calculated at 45%. RISK CATEGORY: Low (<1% Annual Motality Rate) CONCLUSION: 1. Globally depressed ejection fraction 2. Negative for stress-induced ischemia. Electronically signed by: Antelmo Lockhart MD 11/06/2017 2:10 PM EDT
--- NOTE | 2017-11-06 16:01 | HHI.PR ---
Subjective Remarks The patient was having an echocardiogram performed. She said she felt a lot better. She said her rash was better. She had no acute complaints. Discussed with nursing. Objective Vitals Vital Signs Date Time Temp Pulse Resp B/P (MAP) Pulse Ox O2 Delivery O2 Flow Rate FiO2 11/06/17 15:09 98.0 80 16 126/50 (75) 98 11/06/17 15:00 75 11/06/17 14:00 69 11/06/17 11:06 98.6 75 16 128/50 (76) 98 11/06/17 10:00 60 11/06/17 09:00 74 11/06/17 08:00 84 11/06/17 07:51 96 Nasal Cannula 2.00 11/06/17 07:46 Room Air 11/06/17 07:30 98.6 77 16 105/50 (68) 98 11/06/17 07:00 70 11/06/17 06:00 69 11/06/17 05:00 65 11/06/17 04:00 98.1 66 18 125/68 (87) 95 11/06/17 04:00 66 11/06/17 04:00 Nasal Cannula 2.00 11/06/17 03:00 65 11/06/17 02:00 67 11/06/17 01:00 63 11/06/17 00:00 61 11/05/17 23:51 98.4 61 18 92/50 (64) 97 11/05/17 23:00 Nasal Cannula 2.00 11/05/17 23:00 64 11/05/17 22:00 69 11/05/17 21:00 64 11/05/17 20:27 98 Nasal Cannula 2.00 11/05/17 20:00 66 11/05/17 20:00 98.3 66 18 99/52 (68) 96 11/05/17 18:01 64 11/05/17 17:00 64 11/05/17 16:00 62 I/O 11/05/17 11/05/17 11/05/17 11/06/17 11/06/17 11/06/17 07:00 15:00 23:00 07:00 15:00 23:00 Intake Total 240 ml 720 ml 240 ml Output Total 500 ml 300 ml 600 ml Balance -260 ml 420 ml -360 ml Intake Oral 240 ml 720 ml 240 ml Output Urine Total 500 ml 300 ml 600 ml # Voids 2 # Bowel Movements 0 1 1 Result Diagram: 11/04/17 0934 11/04/17 1143 Imaging Last Impressions Myocardial Perfusion Scan [facility] 11/06/17 0000 Signed Impressions: CONCLUSION: 1. Globally depressed ejection fraction 2. Negative for stress-induced ischemia. Chest X-Ray 11/04/17 0920 Signed Impressions: CONCLUSION: Cardiomegaly with bibasilar atelectasis. Objective Remarks GENERAL: No distress. SKIN: Warm and dry. HEAD: Atraumatic. Normocephalic. EYES: Pupils equal and round. No scleral icterus. No injection or drainage. ENT: No nasal bleeding, mild clear nasal discharge and mild nasal congestion. Mucous membranes pink and moist. NECK: Trachea midline. No JVD. No carotid bruits. CARDIOVASCULAR: Regular rate and rhythm. S1 and S2 in RRR. No S3, S4, rub or gallop. No appreciable murmur. RESPIRATORY: No accessory muscle use. Clear to auscultation. Breath sounds equal bilaterally. GASTROINTESTINAL: Abdomen soft, non-tender, nondistended. Hepatic and splenic margins not palpable. MUSCULOSKELETAL: Extremities without clubbing, cyanosis, or edema. No obvious deformities. Tender to palpation of sternum, right shoulder and occiput. NEUROLOGICAL: Awake and alert. No obvious cranial nerve deficits. Motor grossly within normal limits. Five out of 5 muscle strength in the arms and legs. Normal speech. PSYCHIATRIC: Appropriate mood and affect; insight and judgment normal. A/P Assessment and Plan Chest pain/ shoulder pain/ occipital pain Atypical in nature and likely musculoskeletal. She does have a history of [place] and had a short run of V tach overnight. Serial enzymes negative. Stress test with globally depressed EF, no acute ischemia. - consult cardiology. - Added Lopressor. - continue ASA. - echo read pending. HTN Blood pressure stable. - d/c lisinopril. - continue Lopressor. Rash Right groin. - antifungal cream ordered. Improved. PPx: Lovenox Discharge Planning Hopefully d/c in AM. Layton Stern DO Nov 06, 2017 16:01
--- NOTE | 2017-11-06 16:25 | ECHRPT ---
Indication: cardiomyopathy CONCLUSIONS The left ventricular systolic function is normal with an estimated ejection fraction in the range of 55-60%. Normal left ventricular size. Wall thickness is normal. No regional wall motion abnormalities are present. BP: / HR: Rhythm: Sinus Technical Quality:Good FINDINGS LEFT VENTRICLE The left ventricular systolic function is normal with an estimated ejection fraction in the range of 55-60%. Normal left ventricular size. Wall thickness is normal. No regional wall motion abnormalities are present. RIGHT VENTRICLE Normal right ventricular size and systolic function. LEFT ATRIUM The left atrial size is normal. RIGHT ATRIUM The right atrial size is normal. ATRIAL SEPTUM Normal atrial septal thickness without atrial level shunting by limited color doppler interrogation. AORTA The aortic root and proximal ascending aorta are normal in size on limited imaging. MITRAL VALVE Structurally normal mitral valve. No mitral valve stenosis or regurgitation. AORTIC VALVE Trileaflet aortic valve. No aortic valve stenosis or regurgitation. TRICUSPID VALVE Structurally normal tricuspid valve. No tricuspid valve stenosis or regurgitation. PULMONARY VALVE The pulmonary valve is not well visualized. VESSELS The inferior vena cava is normal in size. PERICARDIUM No pericardial effusion. Darell Dugan MD, FACC (Electronically Signed) Final Date:06 November 2017 16:25
[2017-11-07] VITALS (14 sets, daily range): BP systolic 111–116; BP diastolic 57–63; PULSE 66–74; RESP 16–18; TEMP 97.7–98.3; O2SAT 94–97
[2017-11-07] MEDS: LEVOTHYROXINE SODIUM 100 MCG TAB PO SCH (06:35)
[2017-11-07] MEDS: NYSTATIN 100,000 UNIT/GM CREAM 15 GM TOPICAL SCH (06:35)
[2017-11-07] MEDS: SODIUM CHLORIDE 0.9% FLUSH 10 ML FLUSH IV FLUSH SCH (09:00)
[2017-11-07] MEDS: ASPIRIN 325 MG TAB PO SCH (10:04)
[2017-11-07] MEDS: METOPROLOL TARTRATE 25 MG TAB PO SCH (10:05)
[2017-11-07] MEDS ORDERED: AFRI0.052 EACH NARE (10:25)
[2017-11-07] MEDS ORDERED: NYST15T TOPICAL (10:25)
[2017-11-07] MEDS ORDERED: LEVO.1 PO (10:25)
[2017-11-07] MEDS ORDERED: METO25TA3 PO (10:25)
--- NOTE | 2017-11-07 10:25 | HHI.DCPOC ---
Discharge Care Plan Diagnosis: (1) Chest pain (2) Tinea cruris Goals to Promote Your Health * To prevent worsening of your condition and complications * To maintain your health at the optimal level Directions to Meet Your Goals Take your medications as prescribed Follow your dietary instruction Follow activity as directed Keep your appointments as scheduled Take your immunizations and boosters as scheduled If your symptoms worsen call your PCP, if no PCP go to Urgent Care Center or Emergency Room Smoking is Dangerous to Your Health. Avoid second hand smoke Call the 24-hour hour crisis hotline for domestic abuse at Layton Stern DO Nov 07, 2017 10:25
--- NOTE | 2017-11-07 10:33 | HHI.DS ---
Discharge Summary Admission Date Nov 04, 2017 at 15:15 Discharge Date: Nov 07, 2017 Admitting Diagnosis Chest Pain (1) Tinea cruris ICD Code: B35.6 - Tinea cruris Diagnosis: Principal Status: Acute (2) Chest pain ICD Code: R07.9 - Chest pain, unspecified Diagnosis: Principal Status: Acute Procedures None Brief History - From Admission 72 y.o. female presents to the ER for pain starting last evening that she states began in the occipital head radiating into the right posterior neck and shoulder then into the anterior shoulder region. She points to these areas as discussing it. She denies any associated N/V or diaphoresis. Denies any dyspnea, she has had 3 weeks of nasal congestion/drainage for which she has used OTC generic Afrin spray. She states she was told years back that she had a "heart attack" when she lived in the [facility] when she had reported to the ER with an episode of chest pain. She does not recall; however, ever having to have a cardiac catheterization at the time. She endorses she was placed on medicine for it. The pain was constant throughout the night without any relieving factors thus causing her to present to the ER. No precipitating factors other than she states her neck hurt with some movements. She denies any falls or neck/head injuries. States she does have arthritis. She did experience "relief of her headache" with a dose of Morphine in the ER. CBC/BMP: 11/04/17 0934 11/04/17 1143 Significant Findings Laboratory Tests Test 11/04/17 11:43 11/04/17 17:30 11/04/17 20:07 Estimat Glomerular Filtration Rate 70 ML/MIN (>89) Troponin I LESS THAN 0.02 NG/ML LESS THAN 0.02 NG/ML LESS THAN 0.02 NG/ML HDL Cholesterol 37.1 MG/DL (40.0-60.0) Imaging Last Impressions Myocardial Perfusion Scan Nuc Med 11/06/17 0000 Signed Impressions: CONCLUSION: 1. Globally depressed ejection fraction 2. Negative for stress-induced ischemia. Chest X-Ray 11/04/17 0920 Signed Impressions: CONCLUSION: Cardiomegaly with bibasilar atelectasis. PE at Discharge GENERAL: No distress. SKIN: Warm and dry. HEAD: Atraumatic. Normocephalic. EYES: Pupils equal and round. No scleral icterus. No injection or drainage. ENT: No nasal bleeding, mild clear nasal discharge and mild nasal congestion. Mucous membranes pink and moist. NECK: Trachea midline. No JVD. No carotid bruits. CARDIOVASCULAR: Regular rate and rhythm. S1 and S2 in RRR. No S3, S4, rub or gallop. No appreciable murmur. RESPIRATORY: No accessory muscle use. Clear to auscultation. Breath sounds equal bilaterally. GASTROINTESTINAL: Abdomen soft, non-tender, nondistended. Hepatic and splenic margins not palpable. MUSCULOSKELETAL: Extremities without clubbing, cyanosis, or edema. No obvious deformities. Tender to palpation of sternum, right shoulder and occiput. NEUROLOGICAL: Awake and alert. No obvious cranial nerve deficits. Motor grossly within normal limits. Five out of 5 muscle strength in the arms and legs. Normal speech. PSYCHIATRIC: Appropriate mood and affect; insight and judgment normal. Pt update on day of discharge The patient said she was a little lightheaded when walking to the bathroom but that was better. She said that she had a little dry mouth and was drinking water. She said that she had no chest pain. She said her fungal rash was better. Discussed with nursing. Hospital Course Chest pain/ shoulder pain/ occipital pain Atypical in nature and reproducible on palpation. 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 Serial enzymes were negative. Stress test without ischemia but noted a globally depressed EF. Echocardiogram, however, revealed a normal EF. We will continue Lopressor. She will follow up with her PCP. Rash Involving the groin. Improved with antifungal cream, which she will continue upon discharge. Nasal congestion The pt says the saline only helps a little. She will be discharged with oxymetazoline spray. Pt Condition on Discharge: Stable Discharge Disposition: Discharge Home Discharge Time: <= 30 minutes Discharge Instructions DIET: Follow Instructions for: Heart Healthy Diet Activities you can perform: Weight Bearing as Ayo Follow up Referrals: PCP Follow-up - 1 Week New Medications: Levothyroxine (Synthroid) 100 Mcg Tab 100 MCG PO DAILY@0600 for Thyroid, #30 TAB Metoprolol Tartrate (Metoprolol Tartrate) 25 Mg Tab 12.5 MG PO Q12HR for Heart rate, #30 TAB Continued Medications: Nystatin Topical (Nystatin Topical) 100,000 unit/gm Cream 1 APPLIC TOPICAL Q6HR for Infection, #15 GM 0 Refills (This prescription has been renewed) Oxymetazoline Nasal (Afrin Nasal [place]) 0.05% [place] 2-3 SPRAY EACH NARE Q12H PRN for NASAL CONGESTION for 3 Days, #1 BOTTLE 0 Refills (This prescription has been renewed) Layton Stern DO Nov 07, 2017 10:33
[2017-11-08] MEDS ORDERED: MUPI2OIN TOPICAL (13:39)
[2017-11-08] MEDS ORDERED: BACT800T5 PO (13:39)
[2017-11-08] MEDS ORDERED: PANT20 PO (13:39)
[2017-11-08] MEDS ORDERED: LOMO2.5T PO (13:49)
== END 2017-11-07 13:06 | disposition home or self-care (01) | DRG 313 ==
LOC: NEPE 08:53 → NEDA 15:15 → OBSVTOIN 15:15 → NEPGCP 17:10 → HCIS 23:03
PROVIDERS: ADMIT Hospitalist; ATTEND Hospitalist
DX: R07.9 Chest pain, unspecified (principal); I25.2 Old myocardial infarction; I47.2 Ventricular tachycardia; B02.9 Zoster without complications; B35.6 Tinea cruris; I11.9 Hypertensive heart disease without heart failure; B37.2 Candidiasis of skin and nail; E03.9 Hypothyroidism, unspecified; R21 Rash and other nonspecific skin eruption; R09.81 Nasal congestion; M19.90 Unspecified osteoarthritis, unspecified site; M25.511 Pain in right shoulder; M54.9 Dorsalgia, unspecified; M54.2 Cervicalgia; R51 Headache; Z82.49 Family history of ischemic heart disease and other diseases of the circulatory system; Z83.3 Family history of diabetes mellitus; Z90.710 Acquired absence of both cervix and uterus
CPT/HCPCS: 71045; 78452; 80053; 80061; 82550; 83735; 84484; 85025; 85610; 85730; 93005; 93017; 93306; A9502; J2270; J2785